=== PATIENT | male | born 1945 | race Caucasian/White ===

== ENCOUNTER 2018-09-19 08:26 | Day surgery (SDC) | payer OTHER ==
[2018-09-19] MEDS ORDERED: CEFAZOLIN 1GM (PREMIX IV) 1 GM/50 ML BAG ONE (09:23)
[2018-09-19] MEDS ORDERED: Ringers Lactate 1,000 ML IV ONE ×2 (09:23→13:00)
[2018-09-19] MEDS ORDERED: FENTANYL CITR 100 MCG/2 ML ONE (10:02)
[2018-09-19] MEDS ORDERED: LIDOCAINE 2% MPF 5 ML VIAL ONE (10:03)
[2018-09-19] MEDS ORDERED: ONDANSETRON 4 MG/2 ML VIAL ONE (10:03)
[2018-09-19] MEDS ORDERED: PROPOFOL 200 MG/20 ML VIAL IV ONE (10:03)
[2018-09-19] MEDS ORDERED: MIDAZOLAM HCL 2 MG/2 ML INJ ONE (10:03)
[2018-09-19] MEDS ORDERED: ROCURONIUM 50 MG/5 ML VIAL IV ONE (10:04)
[2018-09-19] MEDS: BUPIVACA 0.25%/EPI 0.0005% MDV 50 ML VIAL ONE ×2 (10:53→11:09)
[2018-09-19] MEDS ORDERED: DEXAMETHASONE 10 MG/ML VIAL ONE (11:16)
[2018-09-19] MEDS ORDERED: EPHEDRINE SULF 50 MG/10 ML SYR ONE (12:10)
--- NOTE | 2018-09-19 12:34 | P.OP ---
Preoperative diagnosis: LEFT inguinal hernia Postoperative diagnosis: LEFT inguinal hernia Primary procedure: Open repair of LEFT inguinal hernia with mesh Anesthesia: GETA + Local Estimated blood loss: <10cc Specimen: hernia sack, cord lipoma Findings: bladder within hernia, large indirect hernia, ext oblique aponeurosis thin Complications: None Transferred to: Recovery Room Condition: Good
[2018-09-19] MEDS: MEPERIDINE HCL 50 MG/ML AMP ONE ×4 (13:10→13:30)
[2018-09-19] MEDS ORDERED: HYDROCODONE/APAP 5/325 MG TAB ONE ×2 (14:24→14:25)
[2018-09-19 14:45] VITALS: BP 150/78; TEMP 97; O2SAT 98
--- NOTE | 2018-09-19 23:20 | OP ---
Date of Procedure: 09/19/2018 Surgeon: Tien Macdonald MD, Preoperative Diagnosis: Left inguinal hernia. Postoperative Diagnosis: Left inguinal hernia. Procedure Performed: Open repair of left inguinal hernia with plug and patch Ventralex mesh. Anesthesia: General endotracheal plus local with 0.25% Marcaine. Estimated Blood Loss: Less than 10 cc. Specimen: 1.Hernia sac. 2.Cord lipoma. Findings: 1.Bladder was partially contained within the hernia. 2.There was a large indirect hernia medial to the spermatic cord and structures. 3.The external oblique aponeurosis was very thin and friable and essentially obliterated. Complications: None. Disposition: Transferred to recovery room in good condition. Implants: Bard plug and patch hernia repair system, medium size. Procedure In Detail: The patient was brought to the operating room, prepped and draped in the usual sterile fashion. After adequate anesthesia was achieved, the area of the left inguinal region was an esthetized with 0.25% Marcaine and sharply incised down through subcutaneous tissues. Camper's fat a nd Giselle fascia were easily dissected down to the thin external oblique aponeurosis. It was found t o be quite thin and friable. This was opened in its entirety using Metzenbaum scissors. I then enci rcled the spermatic cord and structures from the superficial inguinal ring to the deep and I found th e hernia defect on the medial aspect. There was significant amount of preperitoneal fat as well as h ernia sac, which was quite large emanating from this medial aspect. I dissected around circumferenti ally and ligated the sac and sent it off for pathologic examination. I then removed the cord lipoma as well from the spermatic cord and structures and protected these throughout the procedure. The cor d lipoma was also sent off for pathologic confirmation. After ligating the sac, I then closed the he rnia sac using a lock stitch with an 0 PDS suture with good approximation of the tissues. I then ret urned into the preperitoneal space through the same defect, I sized the medium Bard Ventralex mesh an d placed in the preperitoneal space, securing it to the superior and medial, lateral shelving edges u sing 0 PDS in an interrupted fashion with good approximation of the tissues. The spermatic cord was noted to be emanating from the lateral aspect easily and without any compression. I then sized the o nlay mesh appropriately and placed it against the pubic tubercle, securing it to the fascia of the pu bic tubercle on the medial aspect with a 2-0 PDS suture and on the medial and lateral shelving edges reconstructing the inguinal ring circumferentially and covering the defect. I then irrigated the are a copiously until completely dry and closed the external oblique aponeurosis remnant using a running 3-0 Vicryl in interrupted fashion. I then closed Camper's fat and Giselle's fascia en bloc over the t op using the interrupted 3-0 Vicryl sutures and the dermal layer was closed with additional 3-0 Vicry l sutures in interrupted fashion. The skin was then copiously irrigated one last time and closed wit h a 4-0 Monocryl in a running fashion. Dermabond placed over top. The patient tolerated the procedu re well without evidence of complication and transferred to the PACU in good condition. All counts w ere correct at the end of the case. VARSHA/JUAN LUIS Voice ID: [id number] Report ID: [id number]
== END 2018-09-19 15:09 | disposition home or self-care (01) ==
LOC: OR 08:26
PROVIDERS: ATTEND Surgery
PROC: 0YU60JZ Supplement Left Inguinal Region with Synthetic Substitute, Open Approach (ICD-10-PCS; principal; 2018-09-19 10:45)
DX: K40.90 Unilateral inguinal hernia, without obstruction or gangrene, not specified as recurrent (principal); I10 Essential (primary) hypertension; H40.9 Unspecified glaucoma; M17.0 Bilateral primary osteoarthritis of knee; M19.021 Primary osteoarthritis, right elbow; Z85.820 Personal history of malignant melanoma of skin; Z80.0 Family history of malignant neoplasm of digestive organs; Z82.49 Family history of ischemic heart disease and other diseases of the circulatory system
CPT/HCPCS: 49505; 88302; J0690; J1100; J2175; J2250; J2405; J2704; J3010